=== PATIENT | female | born 1970 | race Hispanic/Latino ===

== ENCOUNTER 2016-11-20 16:39 | Emergency (ER) | payer OTHER ==
[~2016-11-20] VITALS: Ht 167.6 cm; Wt 101.2 kg
[~2016-11-20 16:39] MED LIST: MOBIC15 M1 PO; NORCO 5-325 TA1 EACH PO; ROBAXIN-750750 M1 PO
[2016-11-20] MEDS ORDERED: BENICAR HCT 401 EAC1 PO (16:56)
[2016-11-20] MEDS ORDERED: GLYBURIDE5 M1 PO (16:56)
[2016-11-20] MEDS ORDERED: ESCITALOPRAM OX20 MG PO (16:56)
[2016-11-20] MEDS ORDERED: CRESTOR20 M2 PO (16:57)
[2016-11-20] MEDS ORDERED: PANTOPRAZOLE SO40 M1 PO (16:57)
[2016-11-20] MEDS ORDERED: JANUMET 50-1,01 EACH PO (16:57)
[2016-11-20] MEDS ORDERED: VITAMIN D5000 UNIT PO (16:58)
[2016-11-20] MEDS ORDERED: MONTELUKAST SOD10 M1 PO (16:58)
[2016-11-20] MEDS ORDERED: LANTUS SOL100 UNIT/1 SC (16:58)
--- NOTE | 2016-11-20 17:10 | ED GI/GU/ABDOMINAL COMPLAINT ---
History of Present Illness General Chief Complaint: Abdominal Pain/Flank Pain Stated Complaint: L SIDE PAIN RADIATES DOWN LEG Source: patient Exam Limitations: no limitations Vital Signs & Intake/Output Vital Signs & Intake/Output Vital Signs Date Time Temp Pulse Resp B/P B/P Pulse O2 O2 Flow FiO2 Mean Ox Delivery Rate 11/21 2143 98.2 67 18 130/65 99 Room Air 11/20 1824 97.6 70 18 135/64 97 Room Air 11/20 1740 99 Room Air 11/20 1641 97.7 86 20 149/81 98 Room Air Allergies Coded Allergies: capsaicin (From NAPROPAX) (BURNING SENSATION HIVES, ITCH 10/29/15) menthol (From NAPROPAX) (BURNING SENSATION HIVES, ITCH 10/29/15) naproxen (From NAPROPAX) (BURNING SENSATION HIVES, ITCH 10/29/15) strawberry (HIVES AND SCRATCHY THROAT 11/20/16) Triage Note: PT TO ED C/O L GROIN PAIN SINCE LAST NIGHT. STATES PAIN RADIATES FROM LEFT GROIN TO LUQ, LEFT FLANK AND DOWN LEFT LEG. C/O NAUSEA. DENIES V/D. STATES HAS BEEN URINATING MORE FREQUENTLY "USUALLY THAT MEANS MY SUGAR IS HIGH". Triage Nurses Notes Reviewed? yes ? N Is pt currently ? No Onset: Abrupt Duration: day(s): (1) Timing: multiple episodes today Location: left lower quadrant Radiation: back Activities at Onset: none No Modifying Factors: none Associated Symptoms: abdominal pain, NAUSEA HPI: This is a 46-year-old female with history of hypertension, diabetes, insulin- dependent, morbid obesity who presents to the ER chief complaint of left lower quadrant abdominal pain and later into her left axis yesterday. She states that she worked, cooked dinner and clean her house and while she was in the shower and to have mild onset. When she stepped into the shower she felt sharp pain in left lower quadrant. It is been colicky in nature. When it comes on it feels sharp and stabbing. Positive nausea but no vomiting. Denies any urinary symptoms. Denies any diarrhea. Currently she is been straining. She states usually does not have severe dysmenorrhea. Denies any history of ovarian cysts. Denies any chance of . Pain is worse with movement. It occasionally radiates down the anterior part of her leg. History of sciatica which is not similar to the presentation today. History of previous colonoscopy which was normal. 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 She is also status post appendectomy and cholecystectomy. (ALEJA SU MD) Reconcile Medications Cholecalciferol (Vitamin D3) (Vitamin D) 5,000 UNIT TABLET 1 TAB PO DAILY SUPPLEMENT (Reported) Escitalopram Oxalate 20 MG TABLET 1 TAB PO DAILY MENTAL HEALTH (Reported) Glyburide 5 MG TABLET 1 TAB PO BID DM (Reported) Insulin Glargine,Hum.rec.anlog (Lantus Solostar) 100 UNIT/ML (3 ML) INSULN.PEN 30 UNIT SC BID DM (Reported) Montelukast Sodium 10 MG TABLET 1 TAB PO PRN ALLERGIES (Reported) Olmesartan/Hydrochlorothiazide (Benicar Hct 40-25 MG Tablet) 40 MG-25 MG TABLET 1 TAB PO DAILY BP (Reported) Pantoprazole Sodium 40 MG TABLET.DR 1 TAB PO DAILY GI (Reported) Rosuvastatin Calcium (Crestor) 20 MG TABLET 1 TAB PO DAILY CHOLESTEROL ( Reported) Sitagliptin Phos/Metformin HCl (Janumet 50-1,000 MG Tablet) 50 MG-1,000 MG TABLET 1 TAB PO BID DM (Reported) Tramadol HCl (Ultram) 50 MG TABLET 1-2 TAB PO TID PRN PAIN TEN...[id number] (LES ARECHIGA,SIDNEY Blevins) Past History Travel History Traveled to [place] past 21 day No Medical History Any Pertinent Medical History? see below for history Cardiovascular: hypertension, hyperlipidemia Endocrine: diabetes Surgical History Surgical History: appendectomy, cholecystectomy, hernia repair-umbilical, tubal ligation, MUCOUD TUMOR REMOVAL Psychosocial History What is your primary language Italian Tobacco Use: Current Daily Use Daily Tobacco Use Amount/Type: => 5 Cigarettes daily ETOH Use: denies use Illicit Drug Use: denies illicit drug use Family History Hx Contributory? No (ALEJA SU MD) Review of Systems Review of Systems Constitutional: Denies: chills, diaphoresis. EENTM: Reports: no symptoms. Respiratory: Denies: cough, short of breath. Cardiovascular: Denies: chest pain, palpitations. GI: Reports: abdominal pain, nausea. Denies: vomiting. Genitourinary: Reports: see HPI (CURRENTLY MENSTRUATING). Denies: discharge, dysuria, frequency, hematuria. Musculoskeletal: Reports: back pain. Skin: Reports: no symptoms. Neurological/Psychological: Reports: no symptoms. Hematologic/Endocrine: Reports: bleeding. Denies: bruising, polyuria, polydipsia. Immunologic/Allergic: Denies: splenectomy. All Other Systems: Reviewed and Negative (ALEJA SU MD) Physical Exam Physical Exam General Appearance: well developed/nourished, alert, awake, mild distress, moderate distress, obese Head: atraumatic, normal appearance Eyes: Bilateral: normal appearance, PERRL, EOMI. Ears, Nose, Throat, Mouth: hearing grossly normal, moist mucous membrane Neck: normal inspection, supple, full range of motion Respiratory: normal breath sounds, chest non-tender, no respiratory distress Cardiovascular: regular rate/rhythm Peripheral Pulses: 2+ radial (R), 2+ radial (L) Gastrointestinal: normal bowel sounds, soft, tenderness (LLQ, LUQ), NO REBOUND/ GUARDING Back: normal inspection, normal range of motion Extremities: normal range of motion Neurologic/Psych: no motor/sensory deficits, awake, alert, oriented x 3 Skin: intact, normal color, warm/dry Core Measures ACS in differential dx? No Severe Sepsis Present: No Septic Shock Present: No (ALEJA SU MD) Progress Differential Diagnosis: diverticulitis, hernia, kidney stone, ovarian cyst, ovarian torsion, UTI/pyelo Plan of Care: Orders Procedure Date/time Status URINE 11/20 172 Complete URINALYSIS 11/20 1722 Complete HUMAN BETA HCG SCREEN 11/20 1722 Complete C-REACTIVE PROTEIN 11/20 172 Complete COMPREHENSIVE METABOLIC PANEL 11/20 172 Complete CBC WITHOUT DIFFERENTIAL 11/20 172 Complete Laboratory Tests 11/20/16 1750: Anion Gap 15, Estimated GFR > 60, BUN/Creatinine Ratio 26.0 H, Glucose 318 H, Calcium 9.2, Total Bilirubin 0.4, AST 35, ALT 53 H, Alkaline Phosphatase 101, C -Reactive Prot, Quant 2.6 H, Total Protein 6.4, Albumin 3.9, Globulin 2.5, Albumin/Globulin Ratio 1.6, Total Beta HCG NEGATIVE, CBC w Diff NO MAN DIFF REQ, RBC 4.58, MCV 86.1, MCH 28.6, RDW 13.3, MPV 8.7, Gran % 61.5, Lymphocytes % 27.1 , Monocytes % 7.6, Eosinophils % 3.1, Basophils % 0.7, Absolute Granulocytes 5.2 , Absolute Lymphocytes 2.3, Absolute Monocytes 0.6, Absolute Eosinophils 0.3, Absolute Basophils 0.1, PUBS MCHC 33.3 11/20/16 1740: Urine Test NEGATIVE 11/20/161739: Urine Color YEL, Urine Clarity CLEAR, Urine pH 6.0, Ur Specific [place] 1.020, Urine Protein NEG, Urine Ketones NEG, Urine Nitrite NEG, Urine Bilirubin NEG, Urine Urobilinogen 0.2, Ur Leukocyte Esterase NEG, Ur Microscopic SEDIMENT EXAMINED, Urine RBC RARE, Ur Epithelial Cells RARE, Urine Bacteria RARE H, Urine Hemoglobin MOD H, Urine Glucose >=1000 H Diagnostic Imaging: Viewed by Me: CT Scan. Discussed w/RAD: CT Scan. Initial ED EKG: none Hand-Off Endorsed To: LES ARECHIGA,SIDNEY Blevins Endorsed Time: 1913 Pending: CT (SHARLENE ARECHIGA,ALEJA) Radiology Impression: ABD/PELVIC CT... NO ACUTE PATHOLOGY... FULL REPORT BELOW Comments: PATIENT: PREMA NAYAK PRESENT AGE: 46 PATIENT ACCOUNT NO: [id number] : 71 LOCATION: [facility] ORDERING PHYSICIAN: ALEJA SU MD SERVICE DATE: 11/20/16 EXAM TYPE: CAT - CT ABD & PELVIS W/O IV CONTRAS EXAMINATION: CT ABDOMEN AND PELVIS WITHOUT CONTRAST CLINICAL INFORMATION: Left lower quadrant pain radiating to the back. COMPARISON: CT abdomen and pelvis with contrast 10/29/2015. TECHNIQUE: Multidetector volumetric imaging was performed from the superior aspect of the liver through the pubic symphysis. Sagittal and coronal reformatted images were obtained on the technologist's workstation. DLP: 1199 mGy-cm FINDINGS: Limited evaluation of the solid abdominal viscera in the absence of intravenous contrast. LUNG BASES: The visualized lung bases are unremarkable. LIVER, GALLBLADDER, AND BILIARY TREE: The liver is enlarged and is visualized measuring approximately 22 cm in length. The liver is otherwise normal in shape and attenuation. No contour deforming hepatic lesions are identified. There is no biliary ductal dilatation. The gallbladder is surgically absent. PANCREAS: Unremarkable. SPLEEN: Unremarkable. ADRENAL GLANDS: Unremarkable. KIDNEYS AND URETERS: The kidneys are normal in size, shape, and attenuation. No hydronephrosis, hydroureter, or calculi seen. No perinephric stranding. BLADDER: Unremarkable. GASTROINTESTINAL TRACT: Normal anatomic orientation of the stomach relative to the duodenum. Normal caliber of abdominal and pelvic bowel loops, without evidence of obstruction or ileus. No circumferential bowel wall thickening with surrounding inflammatory changes to suggest an underlying infectious or inflammatory enterocolitis. Status post appendectomy. Scattered colonic diverticulosis, without secondary signs of acute diverticulitis. No organizing intra-abdominal fluid collections or free intraperitoneal air. ABDOMINAL WALL: Postsurgical changes related to prior umbilical hernia repair. LYMPH NODES: No significant abdominal or pelvic adenopathy. VASCULAR: Normal course and caliber of the abdominal aorta and its branching vessels, without aneurysmal dilatation. Limited evaluation for vascular patency in the absence of intravenous contrast. Scattered atherosclerosis of the abdominal aorta. PELVIC VISCERA: Unremarkable. OSSEOUS STRUCTURES: No acute osseous abnormality. Normal alignment of the imaged thoracolumbar spine. IMPRESSION: No acute findings within the abdomen or pelvis to explain patient symptomatology. DICTATED BY: LUIS MONTERROSO MD DATE/TIME DICTATED:11/20/161951 PAN WASHER:LEONORA DATE/TIME TRANSCRIBED:11/20/161951 CONFIDENTIAL, DO NOT COPY WITHOUT APPROPRIATE AUTHORIZATION. <Electronically signed in Other Vendor System> SIGNED BY: LUIS MONTERROSO MD 11/20/162015 (LES ARECHIGA,SIDNEY Blevins) Departure Departure Disposition: STILL A PATIENT Condition: Stable Clinical Impression Primary Impression: Abdominal pain Referrals: MARGARET TORRES APRN (PCP/Family) Departure Forms: Customer Survey General Discharge Information (SHARLENE ARECHIGA,ALEJA) Departure Prescriptions: Current Visit Scripts Tramadol HCl (Ultram) 1-2 TAB PO TID PRN PAIN #10 TAB TEN...[id number] PA/SOIL CHEMIST Co-Sign Statement Statement: ED Attending supervision documentation- [] I saw and evaluated the patient. I have also reviewed all the pertinent lab results and diagnostic results. I agree with the findings and the plan of care as documented in the PA's/SOIL CHEMIST's documentation. [x] I have reviewed the ED Record and agree with the PA's/SOIL CHEMIST's documentation. [] Additions or exceptions (if any) to the PAs/SOIL CHEMIST's note and plan are summarized below: [] (LES ARECHIGA,SIDNEY Blevins)
[2016-11-20 18:28] LABS: ABSOLUTE BASOPHIL COUNT 0.1 /CUMM (0.0-0.2); ABSOLUTE EOSINOPHIL COUNT 0.3 /CUMM (0.0-0.7); ABSOLUTE GRANULOCYTE CT 5.2 /CUMM (1.4-6.5); ABSOLUTE LYMPH COUNT 2.3 /CUMM (1.2-3.4); ABSOLUTE MONOCYTE COUNT 0.6 /CUMM (0.10-0.60); BASOPHIL % 0.7 % (0.0-2.0); EOSINOPHIL % 3.1 % (0-5); GRANULOCYTE % 61.5 % (42.2-75.2); HEMATOCRIT 39.4 % (37-47); MEAN CORPUSCULAR HGB 28.6 PG (27.0-31.0); MEAN CORPUSCULAR HGB CONC 33.3 G/DL (33.0-37.0); MEAN CORPUSCULAR VOLUME 86.1 FL (81.0-99.0); MEAN PLATELET VOLUME 8.7 FL (7.4-10.4); PLATELET COUNT 288 /CUMM (130-400); RBC DISTRIBUTION WIDTH 13.3 % (11.5-14.5); RED BLOOD CELL CT 4.58 /CUMM (4.20-5.40); WHITE BLOOD CELL COUNT 8.5 /CUMM (4.8-10.8)
--- NOTE | 2016-11-20 20:16 | CT SCAN REPORT ---
EXAMINATION: CT ABDOMEN AND PELVIS WITHOUT CONTRAST CLINICAL INFORMATION: Left lower quadrant pain radiating to the back. COMPARISON: CT abdomen and pelvis with contrast 10/29/2015. TECHNIQUE: Multidetector volumetric imaging was performed from the superior aspect of the liver through the pubic symphysis. Sagittal and coronal reformatted images were obtained on the technologist's workstation. DLP: 1199 mGy-cm FINDINGS: Limited evaluation of the solid abdominal viscera in the absence of intravenous contrast. LUNG BASES: The visualized lung bases are unremarkable. LIVER, GALLBLADDER, AND BILIARY TREE: The liver is enlarged and is visualized measuring approximately 22 cm in length. The liver is otherwise normal in shape and attenuation. No contour deforming hepatic lesions are identified. There is no biliary ductal dilatation. The gallbladder is surgically absent. PANCREAS: Unremarkable. SPLEEN: Unremarkable. ADRENAL GLANDS: Unremarkable. KIDNEYS AND URETERS: The kidneys are normal in size, shape, and attenuation. No hydronephrosis, hydroureter, or calculi seen. No perinephric stranding. BLADDER: Unremarkable. GASTROINTESTINAL TRACT: Normal anatomic orientation of the stomach relative to the duodenum. Normal caliber of abdominal and pelvic bowel loops, without evidence of obstruction or ileus. No circumferential bowel wall thickening with surrounding inflammatory changes to suggest an underlying infectious or inflammatory enterocolitis. Status post appendectomy. Scattered colonic diverticulosis, without secondary signs of acute diverticulitis. No organizing intra-abdominal fluid collections or free intraperitoneal air. ABDOMINAL WALL: Postsurgical changes related to prior umbilical hernia repair. LYMPH NODES: No significant abdominal or pelvic adenopathy. VASCULAR: Normal course and caliber of the abdominal aorta and its branching vessels, without aneurysmal dilatation. Limited evaluation for vascular patency in the absence of intravenous contrast. Scattered atherosclerosis of the abdominal aorta. PELVIC VISCERA: Unremarkable. OSSEOUS STRUCTURES: No acute osseous abnormality. Normal alignment of the imaged thoracolumbar spine. IMPRESSION: No acute findings within the abdomen or pelvis to explain patient symptomatology.
[2016-11-20] MEDS ORDERED: ULTRAM50 M1 PO (21:18)
[2016-11-20 21:44] VITALS: BP 130/65
== END 2016-11-20 21:58 ==
LOC: ERH 16:39
PROVIDERS: Emergency Medicine
DX: R10.32 Left lower quadrant pain (principal); R10.12 Left upper quadrant pain
CPT/HCPCS: 74176; 81001; 81025; 96361; 96374; 96375; J1885; J2405

== ENCOUNTER 2017-10-29 14:01 | Emergency (ER) | payer OTHER ==
[~2017-10-29] VITALS: Ht 170.2 cm; Wt 90.7 kg
[~2017-10-29 14:01] MED LIST changes: +BACTRIM DS TAB1 EACH PO; +BENICAR HCT 401 EAC1 PO; +CRESTOR20 M2 PO; +ESCITALOPRAM OX20 MG PO; +GLYBURIDE5 M1 PO; +JANUMET 50-1,01 EACH PO; +LANTUS SOL100 UNIT/1 SC; +MELOXICAM7.5 M1 PO; +MONTELUKAST SOD10 M1 PO; +PANTOPRAZOLE SO40 M1 PO; +PERCOCET 5-3251 EACH PO; +ULTRAM50 M1 PO; +VICTOZA 2-0.6 MG/0.1; +VITAMIN D5000 UNIT PO; +ZOFRAN ODT4 M1 SL
[2017-10-29 16:38] VITALS: BP 121/68
== END 2017-10-29 17:28 | disposition admitted as inpatient to this hospital (09) ==
LOC: ERH 14:01
DX: M79.644 Pain in right finger(s) (principal)

== ENCOUNTER 2017-11-09 16:26 | Emergency (ER) | payer OTHER ==
[~2017-11-09] VITALS: Ht 170.2 cm; Wt 90.7 kg
[2017-11-09 16:36] VITALS: BP 168/79
--- NOTE | 2017-11-09 17:05 | ED HAND/WRIST INJURY COMPLAINT ---
History of Present Illness General Chief Complaint: Hand or Wrist Injury Stated Complaint: FINGER INJURY Source: patient Exam Limitations: no limitations Vital Signs & Intake/Output Vital Signs & Intake/Output Vital Signs Date Time Temp Pulse Resp B/P B/P Pulse O2 O2 Flow FiO2 Mean Ox Delivery Rate 11/09 1636 98.3 76 18 168/79 99 Room Air Allergies Coded Allergies: capsaicin (From NAPROPAX) (BURNING SENSATION HIVES, ITCH 10/29/15) menthol (From NAPROPAX) (BURNING SENSATION HIVES, ITCH 10/29/15) naproxen (From NAPROPAX) (BURNING SENSATION HIVES, ITCH 10/29/15) strawberry (HIVES AND SCRATCHY THROAT 11/20/16) Reconcile Medications Escitalopram Oxalate 20 MG TABLET 1 TAB PO DAILY MENTAL HEALTH (Reported) Glyburide 5 MG TABLET 1 TAB PO BID DM (Reported) Hydrocodone/Acetaminophen (Hydrocodon-Acetaminophen 5-325) 5 MG-325 MG TABLET 1-2 TAB PO Q4-6 PRN PRN pain Insulin Glargine,Hum.rec.anlog (Lantus Solostar) 100 UNIT/ML (3 ML) INSULN.PEN 30 UNIT SC BID DM (Reported) Liraglutide (Victoza 2-Heron) 0.6 MG/0.1 ML (18 MG/3 ML) PEN.INJCTR DM II ( Reported) Meloxicam 7.5 MG TABLET 1 TAB PO DAILY PAIN (Reported) Montelukast Sodium 10 MG TABLET 1 TAB PO PRN ALLERGIES (Reported) Olmesartan/Hydrochlorothiazide (Benicar Hct 40-25 MG Tablet) 40 MG-25 MG TABLET 1 TAB PO DAILY BP (Reported) Ondansetron (Zofran Odt) 4 MG TAB.RAPDIS 1 TAB SL Q6 PRN NAUSEA/VOMITING Oxycodone HCl/Acetaminophen (Percocet 5-325 MG Tablet) 5 MG-325 MG TABLET 1 TAB PO 4 TIMES/DAY PRN PAIN Oxycodone HCl/Acetaminophen (Percocet 5-325 MG Tablet) 5 MG-325 MG TABLET 1 TAB PO BID PRN pain Pantoprazole Sodium 40 MG TABLET.DR 1 TAB PO DAILY GI (Reported) Rosuvastatin Calcium (Crestor) 20 MG TABLET 1 TAB PO DAILY CHOLESTEROL ( Reported) Sitagliptin Phos/Metformin HCl (Janumet 50-1,000 MG Tablet) 50 MG-1,000 MG TABLET 1 TAB PO BID DM (Reported) Sulfamethoxazole/Trimethoprim (Bactrim Ds Tablet) 800 MG-160 MG TABLET 1 TAB PO BID PARONYCHIA Sulfamethoxazole/Trimethoprim (Bactrim Ds Tablet) 800 MG-160 MG TABLET 1 TAB PO BID infection Tramadol HCl (Ultram) 50 MG TABLET 1-2 TAB PO TID PRN PAIN TEN...[id number] Triage Note: RECEIVED 47 YO FEMALE PRESENTS TO THE ED WITH GROSS SWELLING TO TIP OF RIGHT MIDDLE FINGER. SWELLING ORIGINALLY STARTED 10/25, AND PT WAS SEEN HERE A FEW DAYS, i+D DONE AND PLACED ON ANTIBIOTICS AND FOLLOW UP WITH PMD. PMD CANNOT SEE HER UNTIL 12/06. PT REPORTS CILLS AND SWEATS WEDNESDAY NIGHT TO WEDNESDAY AM Triage Nurses Notes Reviewed? yes Duration: day(s):, constant Timing: recent history Severity: moderate, severe Pain/Injury Location: Right: 3rd finger. HPI: 47-year-old female comes into the emergency room complaints of pain and swelling to right index finger. Patient reports that she had an infection here couple weeks ago. She was on antibiotics. She reports increased swelling and pain. She comes in for further evaluation. Past History Travel History Traveled to [place] past 21 day No Medical History Any Pertinent Medical History? see below for history Neurological: NONE EENT: NONE Cardiovascular: hypertension, hyperlipidemia Respiratory: NONE Gastrointestinal: NONE Hepatic: NONE Renal: NONE Musculoskeletal: NONE Psychiatric: NONE Endocrine: diabetes Blood Disorders: NONE Cancer(s): NONE Surgical History Surgical History: appendectomy, cholecystectomy, hernia repair-umbilical, tubal ligation, MUCOUD TUMOR REMOVAL Psychosocial History What is your primary language Egyptian Tobacco Use: Current Daily Use Daily Tobacco Use Amount/Type: => 5 Cigarettes daily Family History Hx Contributory? No Review of Systems Review of Systems Constitutional: Reports: no symptoms. EENTM: Reports: no symptoms. Respiratory: Reports: no symptoms. Cardiovascular: Reports: no symptoms. GI: Reports: no symptoms. Genitourinary: Reports: no symptoms. Musculoskeletal: Reports: see HPI. Skin: Reports: see HPI. Neurological/Psychological: Reports: no symptoms. Hematologic/Endocrine: Reports: no symptoms. Immunologic/Allergic: Reports: no symptoms. All Other Systems: Reviewed and Negative Physical Exam Physical Exam General Appearance: well developed/nourished, mild distress Head: atraumatic Eyes: Bilateral: normal appearance. Ears, Nose, Throat: normal ENT inspection, hearing grossly normal Neck: normal inspection Cardiovascular/Respiratory: no respiratory distress Back: normal inspection Hand Left: normal inspection Hand Right: swelling, tender, 3rd finger Neurologic/Tendon: normal sensation, normal motor functions, normal tendon functions, responds to pain, no evidence tendon injury Skin: intact, normal color, warm/dry Progress Differential Diagnosis: abscess, cellulitis, felon, paronychia Plan of Care: Current Medications Sig/Efren Start time Last Medication Dose Stop Time Status Admin Lidocaine 20 ML ONCE ONE 11/09 1699 UNVr (Lidocaine 1%) 11/09 170 Departure Departure Disposition: HOME OR SELF CARE Condition: Stable Clinical Impression Primary Impression: Paronychia of finger of right hand Referrals: Alexys Null APRN (PCP/Family) Additional Instructions: Take Bactrim as prescribed for the duration of treatment. Take vicodin as needed for pain. Continuous warm soaks. Keep the area clean. Return to the ED with worsening symptoms, fever, chills, nausea, vomiting. Departure Forms: Customer Survey General Discharge Information Prescriptions: Current Visit Scripts Sulfamethoxazole/Trimethoprim (Bactrim Ds Tablet) 1 TAB PO BID #14 TAB Hydrocodone/Acetaminophen (Hydrocodon-Acetaminophen 5-325) 1-2 TAB PO Q4-6 PRN PRN pain #10 TAB Comments 11/09/2017 6:42:43 PM Warm compresses. Continue antibiotics. Procedures Incision and Drainage Site: right middle phalange Blade Size: 11 I & D Procedure: Yes: betadine prep, sterile drapes applied, sterile dressing applied. No: wick placed. Progress: 1% lidocaine digital block 4cc injected, pt tolerated well. 2cc of purulent drainage expressed
[2017-11-09] MEDS ORDERED: BACTRIM DS TAB1 EACH PO (18:31)
[2017-11-09] MEDS ORDERED: HYDROCODON-ACE1 EAC2 PO (18:31)
== END 2017-11-09 18:44 ==
LOC: ERH 16:26
DX: L03.011 Cellulitis of right finger (principal)